=== PATIENT | male | born 1990 | race Caucasian/White ===

== ENCOUNTER 2017-02-16 21:45 | Emergency (ER) | payer OTHER ==
[2017-02-16] MEDS ORDERED: ONDANSETRON 4 MG TAB.RAPDIS PO ONE (22:17)
[2017-02-16] MEDS ORDERED: OXYCODONE-ACETAMINOPHEN 5-325 MG TABLET PO ONE (22:17)
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
[2017-02-16] MEDS ORDERED: HYDROCODONE/ACETAMINOPHEN 5-325 MG 6 TAB/DSPK PO PRN (23:26)
[2017-02-16] MEDS ORDERED: POLYMYXIN B SULFATE/TMP OPH SOLN 10 ML OS ONE (23:26)
[2017-02-16] MEDS ORDERED: POLYMYXIN B SULFATE/TMP OPH SOLN 10 ML ONE (23:39)
[2017-02-16 23:53] VITALS: BP 124/67
== END 2017-02-16 23:53 | disposition home or self-care (01) ==
LOC: ER 21:45
DX: H57.12 Ocular pain, left eye (principal); M25.512 Pain in left shoulder; Z79.899 Other long term (current) drug therapy; V87.7XXA Person injured in collision between other specified motor vehicles (traffic), initial encounter
CPT/HCPCS: 99284; 73030; S0119; J3490